=== PATIENT | female | born 1950 | race Caucasian/White ===

== ENCOUNTER 2017-09-12 11:15 | Emergency (ER) | payer MEDICARE, OTHER ==
--- OUTSIDE RECORDS SUMMARY | 2017-09-12 11:57 | XMS REPORT ---
:1950 External Reference #:[id number] Author Organization [facility] Address [address] [address] Phone [phone] Care Team Providers Name Role Phone Michaela Arrieta MD Primary Care Physician Unavailable Payers Type Date Identification Numbers Payment Provider Subscriber Medicare Primary Effective: Policy Number: Medicare Marcy Mosqueda 2017 [id number] PayID: [id number] [address] [place] [address] Commercial Policy Number: [id number] [facility] Marcy Mosqueda PayID: [id number] [address] [place] [address] Medigap Part B Expires: 2017 Policy Number: BS Facets Marcy Mosqueda [id number] PayID: [id number] [address] [address] [place] [address] Problems Description No Information Family History Date Family Member(s) Problem(s) Comments Father Congestive Heart Failure (CHF) Father due to CHF () Father Hypertension Father Skin Cancer Father Stroke Mother Ovarian Cancer Mother due to Ovarian Cancer () Siblings 1 Sister, hx of strokes, cancerous lung nodule, COPD Social History Type Date Description Comments Marital Status Single Lives With Daughter Lives With Son in law Lives With grandson Occupation Currently Working Occupation Book Keeper Cigarette Use current cigarette smoker smoked for 45 years, 1 PPD ETOH Use Denies alcohol use Smoking Patient is a former smoker Recreational Drug Use Denies Drug Use Daily Caffeine Consumes on average 3 cups of regular coffee per day Exercise Type/Frequency Exercises rarely Allergies, Adverse Reactions, Alerts Date Description Reaction Status Severity Comments 08/20/2017 Moxifloxacin Shock, Syncope active 08/20/2017 Penicillin Shock active 08/20/2017 Ibuprofen Shock active Medications Medication Date Status Form Strength Qnty SIG Indications Ordering Provider Brelouise Ellipta 08/20/ Active Aerosol 200-25mcg/ 1units 1 puff J44.9 Jessi 2017 Inh inhaled Foster, daily N.P. Fentanyl / Active Patches 50mcg/HR Berny, 0000 72HR Michaela Mckeon MD Incruse / Active Aerosol 62.5mcg/In 1 puff [place], Ellipta 0000 h daily MD Db Ipratropium / Active Solution 0.02% nebulizer Unknown [place] 0000 prn Rosuvastatin / Active Tablets 5mg qd [place], Calcium 0000 MD bD Ventolin HFA / Active Aerosol 108(90Base prn Berny, 0000 ) mcg/Act Michaela Mckeon MD Metamucil / Active Capsules 0.52gm 1 cap by Unknown 0000 mouth twice a day with water Multi Vitamin / Active Tablets 1 by mouth Unknown 0000 every day Magnesium / Active Capsules 400mg 1 by mouth Unknown Oxide -MG 0000 every day Supplement Vitamin B 12 / Active Lozenges 100mcg 1 by mouth Unknown 0000 every day Vitamin C / Active Capsules 500-400mg- 1 by mouth Unknown 0000 Unit every day W/Vitamin E Oxycodone-Acet / Active Tablets 5-325mg Take One Unknown aminophen 0000 Tablet By Mouth Every 4 Hours as Needed For Pain Maximum Beto Aspirin / Active Tablets DR 81mg 1 by mouth Unknown 0000 every day Vitamin D / Active Unknown 0000 Calcium With / Active 1 qd Unknown Vitamin D 0000 Flovent HFA / Hx Aerosol 110mcg/Act 2 puffs bid [place], 0000 - MD Db 2016 Doxycycline / Hx Capsules 100mg Berny, Hyclate 0000 - Michaela 08/19/ MD Linda 2016 Prednisone /00/ Hx Tablets 20mg Karis 0000 - -Jaspreet, 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 Vital Signs Date Vital Result Comment 08/20/2017 Height 61 inches 5'1" Weight 135.00 lb Heart Rate 72 /min BP Systolic Sitting 134 mmHg BP Diastolic Sitting 82 mmHg Respiratory Rate 14 /min O2 % BldC Oximetry 93 % BMI (Body Mass Index) 25.5 kg/m2 Neck Circumference in inches 13.5 06/27/2017 Height 61 inches 5'1" Weight 130.00 lb BP Systolic 132 mmHg BP Diastolic 81 mmHg Respiratory Rate 15 /min Pain Level 5 BMI (Body Mass Index) 24.6 kg/m2 Results Description No Information Procedures Date CPT Code Description Status 07/22/2015 01291 Treadmill Interp/Report Only Completed 07/22/2015 16383 Stress Test Supervsn W/Out I/R Completed 07/22/2015 34896 EKG, Interpretation Only Completed 07/21/2015 67473 EKG, Interpretation Only Completed 11/07/2010 75406 Rad Shoulder Comp, Min. 2 Views Completed 11/07/2010 45703 Inject/Drain Joint/Bursa Major Completed Encounters Type Date Location Provider CPT E/M Dx Office Visit 06/27/2017 1:00p [facility] [place] [address] M19.011 C.M[facility]A. M19.012 Office Visit 07/21/2015 4:25p [facility] Brissa Sears M.D. 59377 R55 R94.31 Office Visit 07/21/2015 12:56p [facility], Jak Rowley M.D. 75054 R55 Hospitalists Office Visit 12/19/2010 1:15p [facility] Reyna M.D. 38862 840.4 C.M.A. Office Visit 11/07/2010 1:15p [facility] Reyn[place] M.D. 76285 840.4 C.M.A. Plan of Care Future Appointment(s):10/01/2017 1:30 pm - Jordana Bell MD at [facility]08/20/2017 - Jordana Bell MDJ44.9 Chronic obstructive pulmonary disease, unspecifiedNew Medication:Breo Ellipta 200-25 mcg /InhNew Labs:Alpha 1 Antitrypsin T7pJgpfeq up:1 month
[2017-09-12 12:17] VITALS: BP 141/81
--- NOTE | 2017-09-12 15:57 | ED ---
Upper Extremity Pain - HPI Summary HPI Summary: Patient presents to the ED with CC of cat scratch to the right hand which occurred 6 days ago. The area created some slight swelling and redness, but the redness is gone and the swelling has dissipated. She states "there is still crepitus" in my hand and notes to when the cat scratch occurred, she stated there was a large open area where air could have gotten in and had become trapped. Denies sweats or chills but has low grade intermittent fevers in the 99's. She has been feeling ill otherwise with COPD and notes to more SOB. Hx of PNA. She states she does not have time for an xray. Denies cough with sputum production. Denies FUNG, abdominal pain, urinary symptoms or back pain. Notes to only mild pain in the hand at this time and only on palpation. Denies numbness, tingling, or temperature changes. - History of Current Complaint Chief Complaint: EDExtremityUpper Stated Complaint: CAT SCRATCH ON HAND Time Seen by Provider: 09/12/17 11:48 Hx Obtained From: Patient Mechanism Of Injury: Penetrating Trauma Onset/Duration: Started Hours Ago Timing: Constant Severity Initially: Moderate Severity Currently: Mild Pain Location: Hand Aggravating Factor(s): Nothing Alleviating Factor(s): Nothing Associated Signs & Symptoms: Positive: Swelling Related History: Dominant Hand Right - Risk Factors Non-Orthopedic Risk Factor: Negative DVT Risk Factors: Negative Septic Arthritis Risk Factor: Negative Compartment Syndrome Risk Factors: Pain - Allergies/Home Medications Allergies/Adverse Reactions: Allergies Allergy/AdvReac Type Severity Reaction Status Date / Time Moxifloxacin Allergy See Comment Verified 09/12/17 11:18 NSAIDs Allergy Unknown Verified 06/07/15 13:19 Reaction Details Penicillins [PCN] Allergy Unknown Verified 06/07/15 13:19 Reaction Details Varenicline [From Chantix] Allergy Unknown Verified 06/07/15 13:19 Reaction Details PMH/Surg Hx/FS Hx/Imm Hx Previously Healthy: Yes Endocrine/Hematology History: Reports: Hx Anticoagulant Therapy, Hx Blood Transfusions, Hx Anemia Denies: Hx Diabetes, Hx Thyroid Disease Cardiovascular History: Reports: Other Cardiovascular Problems/Disorders - carotid stenosis Denies: Hx Hypertension Respiratory History: Reports: Hx Asthma, Hx Chronic Bronchitis, Hx Chronic Obstructive Pulmonary Disease (COPD), Hx Pneumonia, Hx Seasonal Allergies GI History: Reports: Hx Diverticulosis History: Reports: Hx Kidney Stones Musculoskeletal History: Reports: Hx Arthritis, Hx Back Problems, Hx Bursitis, Hx Tendonitis, Other Musculoskeletal History - Osteopenia Denies: Hx Rheumatoid Arthritis, Hx Osteoporosis - OSTEOPENIA Sensory History: Reports: Hx Contacts or Glasses Opthamlomology History: Reports: Hx Contacts or Glasses Neurological History: Reports: Hx Transient Ischemic Attacks (TIA) Denies: Other Neuro Impairments/Disorders Psychiatric History: Reports: Hx Depression - Cancer History Hx Chemotherapy: No Hx Radiation Therapy: No - Surgical History Surgery Procedure, Year, and Place: Apendectomy, 1973, [facility]. Left arm fracture with internal fixation, 2003, [facility]. C1 to C2 fusion, 2003, [facility] Hx Anesthesia Reactions: No - Immunization History Hx Pertussis Vaccination: No Immunizations Up to Date: Unable to Obtain/Confirm Infectious Disease History: No Infectious Disease History: Denies: Traveled Outside the in Last 30 Days - Social History Occupation: Employed Full-time Lives: With Family Alcohol Use: None Hx Substance Use: No Substance Use Type: Reports: None, Prescribed Hx Tobacco Use: No Smoking Status (MU): Former Smoker Type: Cigarettes Length of Time of Smoking/Using Tobacco: 45 years Have You Smoked in the Last Year: Yes Review of Systems Positive: Fever. Negative: Chills, Fatigue, Skin Diaphoresis Eyes: Negative Cardiovascular: Negative Positive: Shortness Of Breath, Cough Gastrointestinal: Negative Positive: no symptoms reported, see HPI Positive: Arthralgia - right dorsum of the hand pain Positive: Other - slight swelling to the dorsum of the right hand Neurological: Negative All Other Systems Reviewed And Are Negative: Yes Physical Exam Triage Information Reviewed: Yes Vital Signs On Initial Exam: Initial Vitals Temp Pulse Resp BP Pulse Ox 98.9 F 85 16 125/73 94 09/12/17 11:18 09/12/17 11:18 09/12/17 11:18 09/12/17 11:18 09/12/17 11:18 Vital Signs Reviewed: Yes Appearance: Positive: Well-Appearing, Well-Nourished Skin: Positive: Warm, Skin Color Reflects Adequate Perfusion, Other - 2 small puncture wounds to the Head/Face: Positive: Normal Head/Face Inspection Eyes: Positive: EOMI, ADRIANA, Conjunctiva Clear Neck: Positive: Supple, No Lymphadenopathy Respiratory/Lung Sounds: Positive: Wheezes. Negative: Rhonchi, Tracheal Deviation, Unable to speak in full sentences, Fatigue Cardiovascular: Positive: Pulses are Symmetrical in both Upper and Lower Extremities Musculoskeletal: Positive: Pain @ - right dorsum of the hand Neurological: Positive: Speech Normal Psychiatric: Positive: Normal, Affect/Mood Appropriate Diagnostics - Vital Signs Vital Signs Temp Pulse Resp BP Pulse Ox 09/12/17 12:16 99 F 85 20 141/81 94 09/12/17 11:18 98.9 F 85 16 125/73 94 - Laboratory Lab Statement: Any lab studies that have been ordered have been reviewed, and results considered in the medical decision making process. Course/Dx - Course Course Of Treatment: Patient presents with right dorsum of the hand swelling with crepitus. She also notes to some SOB and wheezing with her history of COPD. She declines a chest xray and I have agreed to give her and anitbiotic for cat scratch/bite wounds which cross covers most pathogens in the lungs which could cause worsening bronchitis to PNA. She agrees to take the antibiotic and return for any worsening symptoms. She is given strict return precuations. Ice to the hand and tylenol for any fevers. - Diagnoses Provider Diagnoses: Cat scratch, Bronchitis Discharge - Discharge Plan Condition: Stable Disposition: HOME Prescriptions: Azithromyxin [place] (NF) [Z-[place] (Zithromax) 250 mg tabs #6] 2 tab PO .TODAY, THEN 1 DAILY #6 tab Patient Education Materials: Azithromycin (By mouth) Referrals: Michaela Arrieta MD [Primary Care Provider] - Additional Instructions: Please follow up with your PCP Azithromycin - take 2 tabs today, then 1 tab daily for the next 4 days This medication should cover the pathogens from both the hand and any bacterial infection in the lungs Return if your fever worsens
== END 2017-09-12 12:16 | disposition home or self-care (01) ==
LOC: ED 11:15
DX: S60.511A Abrasion of right hand, initial encounter (principal); J40 Bronchitis, not specified as acute or chronic; R06.02 Shortness of breath; R05 Cough; Z87.891 Personal history of nicotine dependence; W55.03XA Scratched by cat, initial encounter; Y92.9 Unspecified place or not applicable; Z79.01 Long term (current) use of anticoagulants; Z86.73 Personal history of transient ischemic attack (TIA), and cerebral infarction without residual deficits; R50.9 Fever, unspecified
CPT/HCPCS: 99282

== ENCOUNTER 2023-07-23 16:28 | Observation (INO) ==
[2023-07-23] MEDS ORDERED: Ondansetron 4 mg VIAL 2 MG/ML 2 ml VIAL IV ONE (17:13)
[2023-07-23] MEDS ORDERED: Lactated Ringers 1000 ml BAG 1,000 ML IV ONE (17:14)
[2023-07-23 17:34] LABS: ABS Basophils 0.1 10^3/uL (0.0-0.1); ABS Lymphocytes 1.1 10^3/uL (1.0-4.8); ABS Monocytes 0.6 10^3/uL (0.0-0.9); ABS Neutrophils 10.4 10^3/uL (1.5-7.6); Eosinophil % 0.3 %; Hematocrit 35.1 % (35-45); Hemoglobin 11.7 g/dL (11.5-14.3); Lymphocyte % 8.7 %; Mean Corpuscular Hemoglobin 29.9 pg (27-33); Mean Corpuscular Hgb Conc 33.4 g/dL (31-36); Mean Corpuscular Volume 89.5 fL (80-97); Mean Platelet Volume 6.7 fL (7.5-11.2); Platelet Count 440 10^3/uL (150-450); Red Blood Count 3.92 10^6/uL (3.63-4.92); Red Cell Distribution Width 14.6 % (12-17); White Blood Count 12.2 10^3/uL (3.8-11.8)
[2023-07-23 18:02] LABS: Albumin 4.1 g/dL (3.2-5.2); Albumin/Globulin Ratio 1.3 (1-3); Calcium 9.2 mg/dL (8.6-10.3); Creatinine, Serum 0.54 mg/dL (0.51-0.95); Globulin 3.1 g/dL (2-4); Magnesium 1.9 mg/dL (1.9-2.7); Phosphorus 2.6 mg/dL (2.5-5.0); Potassium 3.7 mmol/L (3.5-5.0); Total Bilirubin 0.3 mg/dL (0.2-1.0); Total Protein 7.2 g/dL (6.4-8.9); eGFR CKD-EPI 98.4 (>60)
[2023-07-23 19:02] LABS: High Sensitivity Troponin 1 Hr 1834 pg/mL (<15)
[2023-07-23] MEDS ORDERED: fentaNYL PATCH 100 MCG/HR 1 PATCH TRANSDERM ONE (19:17)
[2023-07-23] MEDS ORDERED: fentaNYL PATCH 25 MCG/HR 1 PATCH TRANSDERM ONE (19:18)
[2023-07-23] MEDS ORDERED: Albuterol HFA INHALER 8 gm MDI INH PRN (21:48)
[2023-07-23] MEDS ORDERED: Remdesivir 100 mg Vial 200 MG in NS 0.9% 250 ml 210 ML IV ONE (22:37)
[2023-07-23] MEDS ORDERED: fentaNYL PATCH 100 MCG/HR 1 PATCH TRANSDERM SCH (23:00)
[2023-07-23] MEDS ORDERED: fentaNYL PATCH 25 MCG/HR 1 PATCH TRANSDERM SCH (23:00)
[2023-07-23] MEDS: Ondansetron 4 mg VIAL 2 MG/ML 2 ml VIAL IV PRN (23:51)
[2023-07-24] MEDS ORDERED: Azithromycin 500 mg/250 ml NS 500 MG/250 ML BAG IVPB SCH (02:00)
[2023-07-24] MEDS: Ondansetron 4 mg VIAL 2 MG/ML 2 ml VIAL IV PRN (04:47)
[2023-07-24] MEDS: Morphine ORAL CONCENTRATE 5 MG/0.25 ML ORAL.SYRIN PO PRN ×4 (04:47→14:04)
[2023-07-24] MEDS ORDERED: Mometasone/Formoter 200/5 MDI INH SCH (07:00)
[2023-07-24] MEDS ORDERED: fentaNYL Patch Check Q Shift NOTE FOLLOW UP SCH ×2 (07:00)
[2023-07-24] MEDS ORDERED: SPIRIVA Respimat (tiotropium) 2.5 mcg/inh Inhaler INH SCH (09:00)
[2023-07-24] MEDS ORDERED: Aspirin EC 81 mg TAB.EC (enteric coated) PO SCH (09:00)
[2023-07-24] MEDS ORDERED: Morphine ORAL CONCENTRATE 5 MG/0.25 ML ORAL.SYRIN PO PRN (15:07)
[2023-07-24] MEDS ORDERED: Albuterol 2.5mg/3 ml (0.083%) NEB.SOLN INH ONE (15:09)
[2023-07-24] MEDS ORDERED: Albuterol 2.5mg/3 ml (0.083%) NEB.SOLN INH PRN (15:09)
[2023-07-24 15:55] VITALS: BP 118/56
[2023-07-24] MEDS ORDERED: Remdesivir 100 mg Vial 100 MG in NS 0.9% 250 ml 230 ML IV SCH (21:00)
[2023-07-26] MEDS ORDERED: fentaNYL PATCH 100 MCG/HR 1 PATCH TRANSDERM SCH (20:00)
[2023-07-26] MEDS ORDERED: fentaNYL PATCH 25 MCG/HR 1 PATCH TRANSDERM SCH (20:00)
== END 2023-07-24 17:15 | disposition hospice, inpatient (51) ==
LOC: ED 16:28 → EDHOLD 16:28 → SUATTDRO 21:42 → MEDTELE 07-24 02:13
PROVIDERS: ADMIT Internal Medicine; ATTEND Student in an Organized Health Care Education/Training Program